=== PATIENT | male | born 1980 | race Caucasian/White ===

== ENCOUNTER 2017-01-18 12:00 | Emergency (ER) | payer BC, SELFPAY ==
[2017-01-18] MEDS ORDERED: Prochlorperazine 10 MG/2 ML VIAL ONE (12:27)
[2017-01-18] MEDS ORDERED: diphenhydrAMINE HCl 50 MG/ML 1 ML VIAL ONE (12:27)
[2017-01-18 12:34] LABS: PTT 31.6 SEC (22.9-36.1)
[2017-01-18 12:37] LABS: #Basophils 0.1 thou/uL (0.0-0.2); #Lymphocytes 1.1 thou/uL (1.20-3.40); #Monocytes 0.5 thou/uL (0.11-0.59); #Neutrophils 7.3 thou/uL (1.40-6.50); %Basophils 1.4 % (0.0-1.0); %Eosinophils 0.5 % (0.0-10.0); %Lymphocytes 12.3 % (21.0-51.0); %Monocytes 5.6 % (0.0-10.0); %Neutrophils 80.3 % (42.0-75.0); Hemoglobin 17.3 g/dL (14.0-18.0); Mean Corpuscular HGB CONC 32.9 g/dL (32.0-36.0); Mean Corpuscular Hemoglobin 28.3 pg (27.0-31.0); Mean Platelet Volume 7.8 fL (7.4-10.4); Platelet Count 270 thou/uL (130-400); RBC Distribution Width 11.6 % (11.5-14.5); Red Blood Cell (RBC) Count 6.11 mill/uL (4.70-6.10); White Blood Cell (WBC) Count 9.1 thou/uL (4.8-10.8)
[2017-01-18 12:45] LABS: ALT (SGPT) 15 U/L (8-55); AST (SGOT) 17 U/L (5-34); Albumin 4.5 g/dL (3.5-5.0); Alkaline Phosphatase 62 U/L (40-150); Anion Gap 14 mmol/L (10-20); BUN (Urea Nitrogen) 11 mg/dL (8.9-20.6); Bilirubin, Total 0.7 mg/dL (0.2-1.2); Calc. Creatinine Clearance 0 mL/min (70-130); Calcium 9.5 mg/dL (7.8-10.44); Carbon Dioxide 28 mmol/L (22-29); Chloride 103 mmol/L (98-107); Estimated GFR-MDRD Greater than 90; Globulin 2.9 g/dL (2.4-3.5); Glucose 139 mg/dL (70-105); Potassium 4.1 mmol/L (3.5-5.1); Protein, Total 7.4 g/dL (6.0-8.3); Sodium 141 mmol/L (136-145)
--- NOTE | 2017-01-18 12:58 | CT ---
CT OF BRAIN PERFORMED WITHOUT CONTRAST ENHANCEMENT: Date: 01/18/17 HISTORY: Patient woke up with headache and vomiting. FINDINGS: The ventricular and cisternal system is within normal limits. There are no signs of intracerebral he morrhage or extra-axial fluid collections. The mastoid air cells are clear. There is mucosal change within the left maxillary sinus. IMPRESSION: No acute intracranial abnormalities. POS: [facility]
== END 2017-01-18 13:50 | disposition home or self-care (01) ==
LOC: BURERS 12:00
DX: I10 Essential (primary) hypertension (principal); R51 Headache; E78.5 Hyperlipidemia, unspecified; F17.210 Nicotine dependence, cigarettes, uncomplicated; Z91.19 Patient's noncompliance with other medical treatment and regimen
CPT/HCPCS: 70450; 80053; 85025; 85610; 85730; 96361; 96374; 96375; J0780; J1200

== ENCOUNTER 2021-04-19 09:12 | Emergency (ER) | payer SELFPAY ==
[2021-04-19 20:47] LABS: SARS-CoV-2 PCR by NAA DETECTED (NotDetected)
== END 2021-04-19 11:17 | disposition home or self-care (01) ==
LOC: BURERS 09:12
DX: U07.1 COVID-19 (principal); J18.9 Pneumonia, unspecified organism; E78.5 Hyperlipidemia, unspecified; E78.00 Pure hypercholesterolemia, unspecified; I10 Essential (primary) hypertension; J45.909 Unspecified asthma, uncomplicated; F17.210 Nicotine dependence, cigarettes, uncomplicated
CPT/HCPCS: 71046; 87804; U0003; U0005